=== PATIENT | male | born 1950 | race Caucasian/White ===

== ENCOUNTER 2022-09-18 08:15 | Outpatient (CLI) | payer MEDICARE ==
[2022-09-18 09:31] LABS: #Basophils 0.1 10x3/uL (0.0-0.2); #Eosinphils 0.3 10x3/uL (0.0-0.5); #Monocytes 0.8 10x3/uL (0.0-1.1); #Neutrophils 2.8 10x3/uL (1.5-8.4); %Basophils 1.3 % (0.0-2.0); %Eosinophils 5.2 % (0.0-6.0); %Lymphocytes 37.3 % (18.0-47.0); %Monocytes 12.9 % (0.0-10.0); %Neutrophils 43.1 % (40.0-75.0); Hemoglobin 14.7 g/dL (13.5-17.5); Mean Corpuscular HGB CONC 33.9 g/dL (32.0-36.0); Mean Corpuscular Hemoglobin 29.1 pg (27.0-33.0); Mean Corpuscular Volume 85.6 fl (81.2-95.1); Mean Platelet Volume 9.7 fl (7.4-10.4); Platelet Count 315 10x3/uL (150-450); RBC Distribution Width 13.8 % (11.5-14.5); Red Blood Cell (RBC) Count 5.06 10x6/uL (4.32-5.72); White Blood Cell (WBC) Count 6.4 10x3/uL (3.5-10.5)
== END 2022-09-18 08:16 | disposition home or self-care (01) ==
LOC: LABBT 08:15
PROVIDERS: ATTEND Orthopaedic Surgery Hand Surgery
DX: Z01.818 Encounter for other preprocedural examination (principal); M65.341 Trigger finger, right ring finger; M65.342 Trigger finger, left ring finger
CPT/HCPCS: 85025; 93005; 93010

== ENCOUNTER 2022-09-22 07:03 | Day surgery (SDC) | payer MEDICARE ==
[2022-09-21 10:03] VITALS: BMI 23.9
[2022-09-22] MEDS ORDERED: Bacitracin Zinc Ointment 30 gm TUBE ONE (07:44)
[2022-09-22] MEDS ORDERED: Betamet Acet/Betamet Na Ph 30 MG/5 ML VIAL ONE (07:44)
[2022-09-22] MEDS ORDERED: Bupivacaine PF 0.5% 30 ML VIAL ONE (07:44)
[2022-09-22] MEDS ORDERED: Neomycin-Polymyxin 1 ML AMP ONE (07:44)
[2022-09-22] MEDS ORDERED: CEFAZOLIN 2 GM VIAL ONE (07:50)
[2022-09-22] MEDS ORDERED: Sodium Chloride 0.9% 100 ML ONE (07:50)
[2022-09-22] MEDS ORDERED: PROPOFOL 200 MG/20 ML VIAL ONE (07:58)
[2022-09-22] MEDS ORDERED: Lidocaine 1% PF 5 ML VIAL ONE (07:58)
[2022-09-22] MEDS ORDERED: Ketorolac Tromethamine 30 MG/ML VIAL ONE (07:58)
[2022-09-22] MEDS ORDERED: Dexamethasone 20 MG/5 ML VIAL ONE (07:58)
== END 2022-09-22 10:31 | disposition home or self-care (01) ==
LOC: SDC 07:03
PROVIDERS: ATTEND Orthopaedic Surgery Hand Surgery
PROC: 0RBW0ZZ Excision of Right Finger Phalangeal Joint, Open Approach (ICD-10-PCS; principal; 2022-09-22)
PROC: 0JNJ0ZZ Release Right Hand Subcutaneous Tissue and Fascia, Open Approach (ICD-10-PCS; 2022-09-22)
PROC: 0JNK0ZZ Release Left Hand Subcutaneous Tissue and Fascia, Open Approach (ICD-10-PCS; 2022-09-22)
PROC: 0LN70ZZ Release Right Hand Tendon, Open Approach (ICD-10-PCS; 2022-09-22)
PROC: 0LN80ZZ Release Left Hand Tendon, Open Approach (ICD-10-PCS; 2022-09-22)
DX: M72.0 Palmar fascial fibromatosis [Dupuytren] (principal); L90.5 Scar conditions and fibrosis of skin; M65.341 Trigger finger, right ring finger; M65.342 Trigger finger, left ring finger; M19.041 Primary osteoarthritis, right hand; M19.042 Primary osteoarthritis, left hand; E78.5 Hyperlipidemia, unspecified; G43.909 Migraine, unspecified, not intractable, without status migrainosus; E03.9 Hypothyroidism, unspecified; K21.9 Gastro-esophageal reflux disease without esophagitis; Z79.890 Hormone replacement therapy; Z79.899 Other long term (current) drug therapy; Z88.8 Allergy status to other drugs, medicaments and biological substances
CPT/HCPCS: 88304; J0702; J1100; J1885; J2704; J3490; S0020

== ENCOUNTER 2023-04-13 12:30 | Outpatient (CLI) | payer MEDICARE | END 2023-04-13 12:31 | disposition home or self-care (01) | LOC: SCSMRI 12:30 | PROVIDERS: ATTEND Family Medicine Sports Medicine | DX: M47.816 Spondylosis without myelopathy or radiculopathy, lumbar region (principal); M47.817 Spondylosis without myelopathy or radiculopathy, lumbosacral region; M47.812 Spondylosis without myelopathy or radiculopathy, cervical region; M47.813 Spondylosis without myelopathy or radiculopathy, cervicothoracic region; M51.36 Other intervertebral disc degeneration, lumbar region; M50.30 Other cervical disc degeneration, unspecified cervical region | CPT/HCPCS: 72141; 72148 ==

== ENCOUNTER 2023-09-24 08:38 | Outpatient (CLI) | payer MEDICARE | END 2023-09-24 08:39 | disposition home or self-care (01) | LOC: DTY/OP 08:38 | PROVIDERS: ATTEND Family Medicine Sports Medicine | DX: E78.5 Hyperlipidemia, unspecified (principal); K57.30 Diverticulosis of large intestine without perforation or abscess without bleeding | CPT/HCPCS: 97802 ==

== ENCOUNTER 2024-09-22 13:35 | Outpatient (CLI) | payer MEDICARE, BC | END 2024-09-22 13:36 | disposition home or self-care (01) | LOC: SCSMRI 13:35 | PROVIDERS: ATTEND Psychiatry & Neurology Neurology | DX: R51.9 Headache, unspecified (principal); J34.89 Other specified disorders of nose and nasal sinuses; Z98.890 Other specified postprocedural states | CPT/HCPCS: 70553; 76376 ==